=== PATIENT | male | born 1980 | race Two or more races ===

== ENCOUNTER 2025-04-20 23:15 | Emergency (ER) | payer OTHER ==
[~2025-04-20] VITALS: Ht 172.7 cm; Wt 88.0 kg
[2025-04-20 23:28] VITALS: BP 124/84; PULSE 92; RESP 16; TEMP 97.9; O2SAT 99
[2025-04-21] MEDS: ACETAMINOPHEN 500 MG TABLET PO ONE (00:56)
[2025-04-21] MEDS: IBUPROFEN 400 MG TABLET PO ONE (00:56)
== END 2025-04-21 01:59 ==
LOC: EMS 23:17
DX: S20.222A Contusion of left back wall of thorax, initial encounter (principal); G89.29 Other chronic pain; F17.210 Nicotine dependence, cigarettes, uncomplicated; Z98.890 Other specified postprocedural states; W19.XXXA Unspecified fall, initial encounter; Y93.89 Activity, other specified; Y92.89 Other specified places as the place of occurrence of the external cause; Y99.8 Other external cause status
CPT/HCPCS: 72100; 99283